=== PATIENT | male | born 1985 | race Caucasian/White ===

== ENCOUNTER 2024-05-29 02:03 | Emergency (ER) | payer OTHER ==
[~2024-05-29] VITALS: Ht 157.5 cm; Wt 95.3 kg
[2024-05-29 02:12] VITALS: BP_SYST 161; PULSE 99; RESP 18; TEMP 97.6; O2SAT 97
[2024-05-29 03:51] VITALS: BP_SYST 161; PULSE 99; RESP 18; TEMP 97.6; O2SAT 97
== END 2024-05-29 03:40 | disposition home or self-care (01) ==
LOC: SED 02:03
DX: F10.129 Alcohol abuse with intoxication, unspecified (principal); Y90.9 Presence of alcohol in blood, level not specified
CPT/HCPCS: 99283